=== PATIENT | female | born 1995 | race Caucasian/White ===

== ENCOUNTER 2024-05-08 08:51 | Outpatient (CLI) | payer SELFPAY ==
--- NOTE | 2024-05-08 09:00 | ECHOD_ITS ---
Reason For Study: ARRHYTHMIA Procedure This was a 2D Doppler, Color Flow transthoracic echocardiogram. The study was technically difficult. Definity declined by patient. Exam performed in department. Left Ventricle Normal LV size. The estimated ejection fraction is 65 %. No evidence for diastolic dysfunction. Posterior wall was not well-visualized. Right Ventricle Normal RV size. Normal systolic function. Atria The left and right atria are normal. No doppler evidence for ASD. Mitral Valve There is no mitral valve stenosis. No mitral valve insufficiency. Tricuspid Valve There is no tricuspid stenosis. Unable to estimate RV systolic pressure due to insufficient tricuspid regurgitant envelope. Trivial tricuspid valve insufficiency. Aortic Valve Trisinus/trileaflet aortic valve. There is no aortic stenosis. No aortic valve insufficiency. Pulmonic Valve There is no pulmonic valvular stenosis. No pulmonic valve insufficiency. Great Vessels Normal aortic root. Pericardium/Pleural No pericardial effusion. MMode/2D Measurements & Calculations LVIDd: 4.1 cm IVSd: 0.72 cm Ao root diam: 2.4 cm LVIDs: 2.7 cm LVPWd: 0.53 cm FS: 32.7 % LAV(MOD-bp): 10.6 ml LA A4 area: 6.8 cm2 LA dimension(2D): 2.7 cm LAV(MOD-bp) Indexed: 6.6 ml/m2 LAV(MOD-sp2): 13.2 ml LAV(MOD-sp4): 9.2 ml TAPSE: 2.0 cm RA A4 area: 8.7 cm2 Time Measurements MV dec time: 0.20 sec Doppler Measurements & Calculations MV E max rosas: 72.4 cm/sec Lat Peak E' Rosas: 19.5 cm/sec Med Peak E' Rosas: 11.6 cm/sec MV A max rosas: 41.2 cm/sec E/E' lat: 3.7 E/E' med: 6.2 MV E/A: 1.8 MV V2 max: 77.0 cm/sec MV dec slope: 365.0 cm/sec2 Ao V2 max: 105.3 cm/sec MV max P.4 mmHg Ao max P.4 mmHg MV V2 mean: 48.4 cm/sec Ao V2 mean: 74.4 cm/sec MV mean P.1 mmHg Ao mean P.5 mmHg MV V2 VTI: 23.7 cm Ao V2 VTI: 21.6 cm AV (velocity ratio): 0.96 LV V1 max: 98.7 cm/sec PA V2 max: 81.7 cm/sec LV V1 max P.9 mmHg PA V2 mean: 61.8 cm/sec LV V1 mean P.2 mmHg LV V1 mean: 68.7 cm/sec LV V1 VTI: 20.7 cm ECHO/Echo Complete Interpretation Summary The estimated ejection fraction is 65 %. No evidence for diastolic dysfunction. Ordering Physician: CLARK LINARES Referring Physician: CLARK LINARES Performed By: Blanca Grier RCS
== END 2024-05-08 23:59 | disposition home or self-care (01) ==
PROVIDERS: PCP Family Medicine
DX: I49.9 Cardiac arrhythmia, unspecified (principal)
CPT/HCPCS: 93306